=== PATIENT | male | born 1940 | race Asian ===

== ENCOUNTER 2022-12-09 11:22 | Inpatient (IN) | payer OTHER ==
[2022-12-09] MEDS ORDERED: cefTRIAXone (ROCEPHIN) 1 GM VIAL ONE (11:42)
[2022-12-09] MEDS ORDERED: Azithromycin 500 MG VIAL ONE (11:42)
[2022-12-09 11:55] LABS: Bacteria/HPF None Seen HPF (None Seen); Bilirubin Negative (Negative); Blood, Urine Negative (Negative); CAUTI Indications for Culture Alt mental st,lethar; Clarity Clear (Clear); Glucose, Urine (Dipstick) Normal (Negative); Ketone, Urine Negative (Negative); Leukocyte Negative Leu/uL (Negative); Nitrite Negative (Negative); Protein, Urine (Dipstick) Negative (Neg-Trace); RBC/HPF None Seen HPF (0-3); Squamous Epithelial None Seen HPF (0-3); Urobilinogen Normal mg/dL (Less than 2); WBC/HPF 0-3 HPF (0-3)
[2022-12-09 11:57] LABS: Urine Culture Reflex No No
[2022-12-09 12:01] LABS: #Monocytes 0.9 thou/uL (0.11-0.59); #Neutrophils 6.9 thou/uL (1.40-6.50); %Basophils 0.1 % (0.0-1.0); %Eosinophils 0.1 % (0.0-10.0); %Lymphocytes 15.7 % (21.0-51.0); %Monocytes 9.8 % (0.0-10.0); %Neutrophils 73.9 % (42.0-75.0); Hemoglobin 12.2 g/dL (14.0-18.0); Mean Corpuscular HGB CONC 33.9 g/dL (32.0-36.0); Mean Corpuscular Hemoglobin 29.6 pg (27.0-31.0); Mean Corpuscular Volume 87.4 fl (78.0-98.0); Mean Platelet Volume 9.8 fL (7.4-10.4); Platelet Count 214 10x3/uL (130-400); RBC Distribution Width 13.4 % (11.5-14.5); Red Blood Cell (RBC) Count 4.12 mill/uL (4.70-6.10); White Blood Cell (WBC) Count 9.3 10x3/uL (4.8-10.8)
[2022-12-09 12:22] LABS: ALT (SGPT) 12 U/L (8-55); AST (SGOT) 18 U/L (5-34); Albumin 3.6 g/dL (3.4-4.8); Alkaline Phosphatase 55 U/L (40-110); Anion Gap 17 mmol/L (10-20); BUN (Urea Nitrogen) 38 mg/dL (8.4-25.7); Bilirubin, Total 1.5 mg/dL (0.2-1.2); Calc. Creatinine Clearance 0 mL/min (70-130); Calcium 8.2 mg/dL (7.8-10.44); Carbon Dioxide 16 mmol/L (23-31); Chloride 105 mmol/L (98-107); Estimated GFR 21; Globulin 2.5 g/dL (2.4-3.5); Glucose 128 mg/dL (83-110); Lipase 41 U/L (8-78); Protein, Total 6.1 g/dL (5.8-8.1); Sodium 133 mmol/L (136-145)
[2022-12-09 12:50] LABS: CKMB 3.6 ng/mL (0-6.6)
[2022-12-09] MEDS ORDERED: Furosemide 40 MG/4 ML VIAL ONE (12:58)
[2022-12-09] MEDS ORDERED: Aspirin Chewable 81 MG TAB ONE (13:02)
[2022-12-09 13:57] LABS: Creatinine, Urine 106.74 mg/dL (63-166); Sodium, Urine Less than 20 mmol/L (Not Available)
[2022-12-09] MEDS ORDERED: Ondansetron ODT 4 MG TAB PO PRN (14:33)
[2022-12-09] MEDS ORDERED: Ondansetron PF 4 MG/2 ML Vial IVP PRN (14:33)
[2022-12-09] MEDS ORDERED: Lactated Ringer's 1,000 ML IV SCH ×2 (14:45→16:15)
[2022-12-09 14:57] LABS: Amphetamine Not Detected (NotDetected); Barbiturates Screen Not Detected (NotDetected); Benzodiazepine Screen Not Detected (NotDetected); Cocaine Metabolite Screen Not Detected (NotDetected); Methadone Not Detected (NotDetected); Methamphetamine Not Detected (NotDetected); Opiate Screen Not Detected (NotDetected); Oxycodone Screen Not Detected (NotDetected); Phencyclidine (PCP) Not Detected (NotDetected); THC/Cannabinoid Screen Not Detected (NotDetected); Tricyclic Screen Not Detected (NotDetected)
[2022-12-09 15:34] LABS: Troponin I 0.591 ng/mL (< 0.028)
[2022-12-09 15:41] LABS: Acetaminophen Less than 10 mcg/mL (10.0-30.0); Alcohol Less than 10.0 mg/dL (Less than 10); CK (CPK) 63 U/L (30-200); Salicylate Less than 8.0 mg/dL (15.0-30.0)
[2022-12-09 17:51] LABS: INR-International Normal Ratio 1.3; Prothrombin Time 16.2 sec (12.0-14.7)
[2022-12-09 17:52] LABS: PTT 49.4 sec (22.9-36.1)
[2022-12-09 18:00] LABS: ALT (SGPT) 13 U/L (8-55); AST (SGOT) 16 U/L (5-34); Albumin 3.6 g/dL (3.4-4.8); Alkaline Phosphatase 56 U/L (40-110); Anion Gap 16 mmol/L (10-20); BUN (Urea Nitrogen) 40 mg/dL (8.4-25.7); Bilirubin, Total 0.8 mg/dL (0.2-1.2); Calc. Creatinine Clearance 0 mL/min (70-130); Carbon Dioxide 18 mmol/L (23-31); Chloride 108 mmol/L (98-107); Estimated GFR 22; Globulin 2.4 g/dL (2.4-3.5); Glucose 120 mg/dL (83-110); Potassium 5.1 mmol/L (3.5-5.1); Sodium 137 mmol/L (136-145)
[2022-12-09 18:19] LABS: Hep C IgG Ab Non-Reactive S/CO (NonReactive); Hep C Index 0.06 S/CO (0-0.79)
[2022-12-09] MEDS ORDERED: Ipratropium/Albuterol 3 ML NEB NEB PRN (18:21)
[2022-12-09 18:40] VITALS: BMI 23.2
[2022-12-09 18:49] LABS: Troponin I 0.809 ng/mL (< 0.028)
[2022-12-09] MEDS: Ipratropium/Albuterol 3 ML NEB NEB SCH ×2 (19:06→22:33)
[2022-12-09 21:09] LABS: Troponin I 1.136 ng/mL (< 0.028)
[2022-12-10 00:33] LABS: Troponin I 1.362 ng/mL (< 0.028)
[2022-12-10] MEDS: Ipratropium/Albuterol 3 ML NEB NEB SCH ×2 (02:23→07:33)
[2022-12-10 04:23] LABS: #Monocytes 0.9 thou/uL (0.11-0.59); #Neutrophils 6.1 thou/uL (1.40-6.50); %Basophils 0.2 % (0.0-1.0); %Eosinophils 0.4 % (0.0-10.0); %Lymphocytes 23.5 % (21.0-51.0); %Monocytes 9.4 % (0.0-10.0); %Neutrophils 66.3 % (42.0-75.0); Hemoglobin 12.7 g/dL (14.0-18.0); Mean Corpuscular HGB CONC 33.2 g/dL (32.0-36.0); Mean Corpuscular Hemoglobin 29.8 pg (27.0-31.0); Mean Corpuscular Volume 89.9 fl (78.0-98.0); Mean Platelet Volume 9.6 fL (7.4-10.4); Platelet Count 225 10x3/uL (130-400); RBC Distribution Width 13.8 % (11.5-14.5); Red Blood Cell (RBC) Count 4.26 mill/uL (4.70-6.10); White Blood Cell (WBC) Count 9.2 10x3/uL (4.8-10.8)
[2022-12-10 04:47] LABS: ALT (SGPT) 14 U/L (8-55); AST (SGOT) 21 U/L (5-34); Albumin 3.7 g/dL (3.4-4.8); Alkaline Phosphatase 59 U/L (40-110); Anion Gap 17 mmol/L (10-20); BUN (Urea Nitrogen) 41 mg/dL (8.4-25.7); Bilirubin, Total 0.6 mg/dL (0.2-1.2); Calc. Creatinine Clearance 18 mL/min (70-130); Calcium 8.4 mg/dL (7.8-10.44); Carbon Dioxide 17 mmol/L (23-31); Chloride 109 mmol/L (98-107); Estimated GFR 25; Globulin 2.6 g/dL (2.4-3.5); Glucose 137 mg/dL (83-110); Potassium 4.7 mmol/L (3.5-5.1); Protein, Total 6.3 g/dL (5.8-8.1); Sodium 138 mmol/L (136-145)
[2022-12-10 05:02] LABS: Troponin I 1.494 ng/mL (< 0.028)
[2022-12-10] MEDS ORDERED: Ipratropium/Albuterol 3 ML NEB NEB PRN (07:34)
[2022-12-10 08:05] LABS: Actual Bicarbonate (HCO3a) 18.6 mEq/L (22-28); Base Excess (BEa) -4.8 mEq/L (-2.0 to +3.0); CO2 Tension 29.8 mmHg (35.0-45.0); Calcium, Ionized (arterial) 1.08 mmol/L (1.12-1.30); Carboxyhemoglobin (COHb) 0.7 gm% (0.0-3.0); Hematocrit-ABG 39 % (42.0-52.0); Hemoglobin (Hb) 13.1 g/dL (14.0-18.0); O2 Tension (PaO2), arterial 66.3 mmHg (> 60.0); Potassium - ABG Lab 4.41 mmol/L (3.70-5.30); pH, Arterial 7.412 (7.35-7.45)
[2022-12-10 08:10] LABS: Puncture Site LRA
[2022-12-10 08:57] LABS: Hemoglobin A1c 5.3 % (4.0-6.0)
[2022-12-10] MEDS: Lactated Ringer's 1,000 ML IV SCH ×2 (09:11→21:23)
[2022-12-10] MEDS ORDERED: Carvedilol 6.25 MG TAB PO SCH (12:15)
[2022-12-10 13:51] LABS: Cardiac Risk 4.3 (Less than 4.5); Cholesterol 119 mg/dl (< 200 Desired); HDL Cholesterol 28 mg/dL (>60 Neg Risk); LDL Cholesterol, Calculated 76 mg/dL; Magnesium 1.8 mg/dL (1.6-2.6); Triglycerides 74 mg/dL (Less than 150)
[2022-12-10] MEDS ORDERED: Regadenoson 0.4 MG/5 ML SYRINGE ONE (14:57)
[2022-12-10] MEDS: Carvedilol 6.25 MG TAB PO SCH (15:10)
[2022-12-11 04:29] LABS: #Monocytes 0.6 thou/uL (0.11-0.59); %Basophils 0.3 % (0.0-1.0); %Eosinophils 0.4 % (0.0-10.0); %Lymphocytes 22.5 % (21.0-51.0); %Monocytes 7.8 % (0.0-10.0); %Neutrophils 68.9 % (42.0-75.0); Hemoglobin 12.9 g/dL (14.0-18.0); Mean Corpuscular HGB CONC 33.8 g/dL (32.0-36.0); Mean Corpuscular Hemoglobin 30.4 pg (27.0-31.0); Mean Corpuscular Volume 90.1 fl (78.0-98.0); Mean Platelet Volume 9.3 fL (7.4-10.4); Platelet Count 209 10x3/uL (130-400); RBC Distribution Width 13.9 % (11.5-14.5); Red Blood Cell (RBC) Count 4.24 mill/uL (4.70-6.10); White Blood Cell (WBC) Count 7.2 10x3/uL (4.8-10.8)
[2022-12-11 05:02] LABS: ALT (SGPT) 13 U/L (8-55); AST (SGOT) 28 U/L (5-34); Albumin 3.4 g/dL (3.4-4.8); Alkaline Phosphatase 61 U/L (40-110); Anion Gap 13 mmol/L (10-20); BUN (Urea Nitrogen) 24 mg/dL (8.4-25.7); Bilirubin, Total 0.6 mg/dL (0.2-1.2); Calc. Creatinine Clearance 37 mL/min (70-130); Calcium 8.8 mg/dL (7.8-10.44); Carbon Dioxide 21 mmol/L (23-31); Chloride 113 mmol/L (98-107); Estimated GFR 58; Globulin 2.8 g/dL (2.4-3.5); Glucose 118 mg/dL (83-110); Potassium 4.2 mmol/L (3.5-5.1); Protein, Total 6.2 g/dL (5.8-8.1); Sodium 143 mmol/L (136-145)
[2022-12-11] MEDS: Lactated Ringer's 1,000 ML IV SCH (05:57)
[2022-12-11] MEDS ORDERED: Losartan 25 MG TAB PO SCH ×2 (10:15→14:45)
[2022-12-11] MEDS: Carvedilol 6.25 MG TAB PO SCH ×2 (10:19→16:24)
[2022-12-12 04:27] LABS: #Eosinphils 0.2 thou/uL (0.0-0.7); #Monocytes 0.6 thou/uL (0.11-0.59); #Neutrophils 4.1 thou/uL (1.40-6.50); %Basophils 0.2 % (0.0-1.0); %Eosinophils 2.7 % (0.0-10.0); %Lymphocytes 24.4 % (21.0-51.0); %Monocytes 9.2 % (0.0-10.0); %Neutrophils 63.2 % (42.0-75.0); Hemoglobin 14.1 g/dL (14.0-18.0); Mean Corpuscular HGB CONC 33.5 g/dL (32.0-36.0); Mean Corpuscular Hemoglobin 29.9 pg (27.0-31.0); Mean Corpuscular Volume 89.2 fl (78.0-98.0); Mean Platelet Volume 9.5 fL (7.4-10.4); Platelet Count 215 10x3/uL (130-400); RBC Distribution Width 13.2 % (11.5-14.5); Red Blood Cell (RBC) Count 4.72 mill/uL (4.70-6.10); White Blood Cell (WBC) Count 6.6 10x3/uL (4.8-10.8)
[2022-12-12 04:52] LABS: ALT (SGPT) 13 U/L (8-55); AST (SGOT) 27 U/L (5-34); Albumin 3.6 g/dL (3.4-4.8); Alkaline Phosphatase 69 U/L (40-110); Anion Gap 12 mmol/L (10-20); BUN (Urea Nitrogen) 18 mg/dL (8.4-25.7); Bilirubin, Total 0.8 mg/dL (0.2-1.2); Calc. Creatinine Clearance 45 mL/min (70-130); Calcium 8.9 mg/dL (7.8-10.44); Carbon Dioxide 21 mmol/L (23-31); Chloride 110 mmol/L (98-107); Estimated GFR 75; Globulin 2.9 g/dL (2.4-3.5); Glucose 100 mg/dL (83-110); Protein, Total 6.5 g/dL (5.8-8.1); Sodium 139 mmol/L (136-145)
[2022-12-12] MEDS: hydrALAZINE 20 MG/ML VIAL SLOW IVP PRN ×2 (07:06→16:42)
[2022-12-12] MEDS: Carvedilol 6.25 MG TAB PO SCH ×2 (08:57→17:24)
[2022-12-12] MEDS: Losartan 25 MG TAB PO SCH (08:57)
[2022-12-12] MEDS ORDERED: Losartan 25 MG TAB PO SCH ×2 (09:00)
[2022-12-12] MEDS ORDERED: NIFEdipine XL 30 MG TAB PO SCH ×2 (12:00→14:15)
[2022-12-13 05:09] LABS: #Eosinphils 0.3 thou/uL (0.0-0.7); #Monocytes 0.8 thou/uL (0.11-0.59); #Neutrophils 3.4 thou/uL (1.40-6.50); %Basophils 0.5 % (0.0-1.0); %Lymphocytes 29.5 % (21.0-51.0); %Monocytes 12.2 % (0.0-10.0); %Neutrophils 52.5 % (42.0-75.0); Hemoglobin 14.9 g/dL (14.0-18.0); Mean Corpuscular HGB CONC 33.6 g/dL (32.0-36.0); Mean Corpuscular Hemoglobin 29.3 pg (27.0-31.0); Mean Platelet Volume 9.2 fL (7.4-10.4); Platelet Count 204 10x3/uL (130-400); Red Blood Cell (RBC) Count 5.09 mill/uL (4.70-6.10); White Blood Cell (WBC) Count 6.4 10x3/uL (4.8-10.8)
[2022-12-13 05:35] LABS: ALT (SGPT) 13 U/L (8-55); AST (SGOT) 26 U/L (5-34); Albumin 3.6 g/dL (3.4-4.8); Alkaline Phosphatase 69 U/L (40-110); Anion Gap 15 mmol/L (10-20); BUN (Urea Nitrogen) 18 mg/dL (8.4-25.7); Bilirubin, Total 0.9 mg/dL (0.2-1.2); Calc. Creatinine Clearance 51 mL/min (70-130); Calcium 9.5 mg/dL (7.8-10.44); Carbon Dioxide 22 mmol/L (23-31); Chloride 109 mmol/L (98-107); Estimated GFR 85; Glucose 98 mg/dL (83-110); Potassium 3.8 mmol/L (3.5-5.1); Protein, Total 6.6 g/dL (5.8-8.1); Sodium 142 mmol/L (136-145)
[2022-12-13] MEDS: Carvedilol 6.25 MG TAB PO SCH (07:38)
[2022-12-13] MEDS: Losartan 25 MG TAB PO SCH (07:38)
[2022-12-13 07:59] VITALS: TEMP 98.1
[2022-12-13 08:47] VITALS: BP 144/68
[2022-12-13] MEDS ORDERED: NIFEdipine XL 60 MG TAB PO SCH (09:00)
[2022-12-13] MEDS ORDERED: NIFEdipine XL 30 MG TAB PO SCH (09:00)
== END 2022-12-13 11:20 | disposition home or self-care (01) | DRG 70 ==
LOC: ERS 11:22 → ERHOLD 13:19 → 2NO 18:14
PROVIDERS: ADMIT Student in an Organized Health Care Education/Training Program; ATTEND Student in an Organized Health Care Education/Training Program
DX: G93.41 Metabolic encephalopathy (principal); I21.A1 Myocardial infarction type 2; E87.1 Hypo-osmolality and hyponatremia; N17.9 Acute kidney failure, unspecified; I50.32 Chronic diastolic (congestive) heart failure; E86.0 Dehydration; F17.210 Nicotine dependence, cigarettes, uncomplicated; D64.9 Anemia, unspecified; E03.9 Hypothyroidism, unspecified; I11.0 Hypertensive heart disease with heart failure; E05.90 Thyrotoxicosis, unspecified without thyrotoxic crisis or storm; I08.1 Rheumatic disorders of both mitral and tricuspid valves; R73.9 Hyperglycemia, unspecified; E78.00 Pure hypercholesterolemia, unspecified; Z79.899 Other long term (current) drug therapy
CPT/HCPCS: 36415; 36600; 51701; 70450; 71045; 74230; 78452; 80053; 80061; 80306; 80307; 81001; 82140; 82550; 82553; 82570; 82805; 83036; 83605; 83690; 83735; 83880; 84100; 84300; 84436; 84439; 84443; 84481; 84484; 85025; 85610; 85730; 86803; 87040; 87086; 93005; 93010; 93017; 93306; 94640; 96361; 96365; 96372; A9500; J0360; J0456; J0696; J1650; J1940; J2785; J7120; J7620

== ENCOUNTER 2023-11-05 14:29 | Inpatient (IN) | payer MEDICAID, OTHER ==
[~2023-11-05 14:29] MED LIST: Iopamidol-370 76% 500 ML MDV (1 ML CHARGE) ONE
[2023-11-05] MEDS ORDERED: CALCIUM GLUC 1 GM (50 ML) BAG ONE (14:36)
[2023-11-05] MEDS ORDERED: Calcium Gluc 4.6 MEQ/10 ML (100 MG/ML) ONE ×2 (14:36→14:39)
[2023-11-05] MEDS ORDERED: Aspirin 300 MG Suppository ONE (14:40)
[2023-11-05] MEDS ORDERED: EPINEPHrine 1 MG/ML VIAL ONE ×4 (14:48→15:12)
[2023-11-05] MEDS ORDERED: Heparin 25,000 UNITS/D5W 500 ml bag ONE (14:50)
[2023-11-05] MEDS ORDERED: EPINEPHrine 1 MG/10 ML Abboject SYRINGE ONE (14:52)
[2023-11-05 15:03] LABS: #Basophils Less than 0.03 10x3/uL (0.0-0.2); %Basophils 0.2 % (0.0-1.0); %Eosinophils 6.9 % (0.0-10.0); %Monocytes 11.2 % (0.0-10.0); %Neutrophils 47.4 % (42.0-75.0); Hematocrit 32.8 % (42.0-52.0); Hemoglobin 11.4 g/dL (14.0-18.0); Mean Corpuscular HGB CONC 34.8 g/dL (32.0-36.0); Mean Corpuscular Hemoglobin 30.5 pg (27.0-31.0); Mean Corpuscular Volume 87.7 fL (78.0-98.0); Mean Platelet Volume 9.7 fL (7.4-10.4); Platelet Count 167 10x3/uL (130-400); RBC Distribution Width 12.5 % (11.5-14.5); Red Blood Cell (RBC) Count 3.74 mill/uL (4.70-6.10)
[2023-11-05] MEDS ORDERED: NOREPINEPHRINE 8 MG/250 ML-D5W 0 ML ONE (15:07)
[2023-11-05 15:15] LABS: INR-International Normal Ratio 1.1; Prothrombin Time 14.2 sec (12.0-14.7)
[2023-11-05 15:16] LABS: PTT 31.2 sec (22.9-36.1)
[2023-11-05 15:18] LABS: ALT (SGPT) 29 U/L (8-55); AST (SGOT) 22 U/L (5-34); Albumin 3.3 g/dL (3.4-4.8); Alkaline Phosphatase 39 U/L (40-110); Anion Gap 15 mmol/L (10-20); BUN (Urea Nitrogen) 13 mg/dL (8.4-25.7); Bilirubin, Total 1.5 mg/dL (0.2-1.2); Calc. Creatinine Clearance 0 mL/min (70-130); Calcium 7.9 mg/dL (7.8-10.44); Carbon Dioxide 20 mmol/L (23-31); Chloride 112 mmol/L (98-107); Estimated GFR 55; Globulin 2.4 g/dL (2.4-3.5); Glucose 156 mg/dL (83-110); Potassium 4.1 mmol/L (3.5-5.1); Protein, Total 5.7 g/dL (5.8-8.1); Sodium 143 mmol/L (136-145)
[2023-11-05 15:22] LABS: Troponin I Less than 0.010 ng/mL (< 0.028)
[2023-11-05] MEDS ORDERED: Sodium Chloride 0.9% 100 ML ONE (15:29)
[2023-11-05] MEDS ORDERED: Cefepime 2 GM VIAL ONE (15:29)
[2023-11-05] MEDS ORDERED: Vancomycin (BATCH) 2 GM/500 ML BAG ONE (15:49)
[2023-11-05 16:31] LABS: Lipase 22 U/L (8-78)
[2023-11-05 16:33] LABS: Acetaminophen Less than 10 mcg/mL (10.0-30.0); Alcohol Less than 10.0 mg/dL (Less than 10); Salicylate Less than 8.0 mg/dL (15.0-30.0)
[2023-11-05 17:11] LABS: Bacteria/HPF None Seen HPF (None Seen); Bilirubin Negative (Negative); Blood, Urine Negative (Negative); CAUTI Indications for Culture Alt mental st,lethar; Clarity Clear (Clear); Glucose, Urine (Dipstick) Normal (Negative); Ketone, Urine Negative (Negative); Leukocyte Negative Leu/uL (Negative); Nitrite Negative (Negative); Protein, Urine (Dipstick) 10 mg/dL (Neg-Trace); RBC/HPF 0-3 HPF (0-3); Squamous Epithelial None Seen HPF (0-3); Urobilinogen Normal mg/dL (Less than 2); WBC/HPF 0-3 HPF (0-3)
[2023-11-05 17:17] LABS: Amphetamine Not Detected (NotDetected); Barbiturates Screen Not Detected (NotDetected); Benzodiazepine Screen Not Detected (NotDetected); Cocaine Metabolite Screen Not Detected (NotDetected); Methadone Not Detected (NotDetected); Methamphetamine Not Detected (NotDetected); Opiate Screen Not Detected (NotDetected); Oxycodone Screen Not Detected (NotDetected); Phencyclidine (PCP) Not Detected (NotDetected); THC/Cannabinoid Screen Not Detected (NotDetected); Tricyclic Screen Not Detected (NotDetected)
[2023-11-05 17:47] LABS: Urine Culture Reflex No No
[2023-11-05 17:52] LABS: Troponin I Less than 0.010 ng/mL (< 0.028)
[2023-11-05 17:53] LABS: Magnesium 1.9 mg/dL (1.6-2.6)
[2023-11-05] MEDS ORDERED: Senokot S 8.6-50 MG TAB PO PRN (18:56)
[2023-11-05] MEDS ORDERED: Ondansetron ODT 4 MG TAB PO PRN (18:56)
[2023-11-05] MEDS ORDERED: Calcium Carbonate 500 MG ChewTAB PO PRN (18:56)
[2023-11-05] MEDS ORDERED: Ondansetron PF 4 MG/2 ML Vial IVP PRN (18:56)
[2023-11-05] MEDS ORDERED: Ipratropium/Albuterol 3 ML NEB NEB PRN (18:58)
[2023-11-05] MEDS ORDERED: Heparin 10,000 UNITS/ 10 ML VIAL SLOW IVP SCH (19:00)
[2023-11-05] MEDS ORDERED: Heparin 25,000 units/D5W 500 ML IVPB SCH (19:00)
[2023-11-05] MEDS ORDERED: EPINEPHrine 4 MG in Dextrose 5% in Water 250 ML IV SCH (19:15)
[2023-11-05 19:43] LABS: Troponin I Less than 0.010 ng/mL (< 0.028)
[2023-11-05 20:34] LABS: Hematocrit 32.9 % (42.0-52.0); Hemoglobin 11.4 g/dL (14.0-18.0); Platelet Count 188 10x3/uL (130-400)
[2023-11-05 20:40] VITALS: BMI 25.8
[2023-11-05] MEDS ORDERED: Vancomycin 1.5 GM in Sodium Chloride 0.9% 250 ML 300 ML IVPB SCH (21:00)
[2023-11-05] MEDS: methylPREDNISolone Sod Succ 40 MG VIAL IVP SCH (21:02)
[2023-11-05] MEDS: Famotidine 20 MG TAB PO SCH (21:02)
[2023-11-05] MEDS: Albumin 25% 25 GM (100 mL) BOT IVPB SCH (21:02)
[2023-11-05] MEDS: Sodium Chloride 0.9% 1,000 ML IV SCH (21:02)
[2023-11-05 21:03] LABS: PTT 159.3 sec (22.9-36.1)
[2023-11-05] MEDS: Magnesium 2 GM/50 ML(in water) 2 GM in Premix 1 BAG IVPB SCH (21:20)
[2023-11-06] MEDS: Cefepime 1 GM in Sodium Chloride 0.9% 100 ML IVPB SCH (02:47)
[2023-11-06 04:59] LABS: Lactic Acid 1.1 mmol/L (0.5-2.2)
[2023-11-06 05:02] LABS: Albumin 4.8 g/dL (3.4-4.8); Chloride 113 mmol/L (98-107); Potassium 3.7 mmol/L (3.5-5.1); Sodium 142 mmol/L (136-145)
[2023-11-06 05:03] LABS: ALT (SGPT) 27 U/L (8-55); AST (SGOT) 19 U/L (5-34); Alkaline Phosphatase 43 U/L (40-110); Anion Gap 14 mmol/L (10-20); BUN (Urea Nitrogen) 14 mg/dL (8.4-25.7); Bilirubin, Total 1.7 mg/dL (0.2-1.2); Calc. Creatinine Clearance 44 mL/min (70-130); Carbon Dioxide 19 mmol/L (23-31); Estimated GFR 71; Globulin 2.5 g/dL (2.4-3.5); Glucose 156 mg/dL (83-110); Magnesium 1.8 mg/dL (1.6-2.6); Vancomycin, Random 21.3 ug/mL (See Comment)
[2023-11-06 05:28] LABS: Hematocrit 32.7 % (42.0-52.0); Hemoglobin 11.5 g/dL (14.0-18.0); Red Blood Cell (RBC) Count 3.85 mill/uL (4.70-6.10)
[2023-11-06 05:29] LABS: %Basophils 0.1 % (0.0-1.0); %Eosinophils 0.1 % (0.0-10.0); %Lymphocytes 11.8 % (21.0-51.0); %Neutrophils 86.7 % (42.0-75.0); Mean Corpuscular HGB CONC 35.2 g/dL (32.0-36.0); Mean Corpuscular Hemoglobin 29.9 pg (27.0-31.0); Mean Corpuscular Volume 84.9 fL (78.0-98.0); Mean Platelet Volume 9.4 fL (7.4-10.4); Platelet Count 159 10x3/uL (130-400); RBC Distribution Width 12.6 % (11.5-14.5)
[2023-11-06 05:30] LABS: #Basophils Less than 0.03 10x3/uL (0.0-0.2); #Eosinphils Less than 0.03 10x3/uL (0.0-0.7)
[2023-11-06 05:41] LABS: Calcium 9.7 mg/dL (7.8-10.44); Phosphorus 1.5 mg/dL (2.3-4.7); Protein, Total 7.3 g/dL (5.8-8.1)
[2023-11-06] MEDS ORDERED: Electrolyte Replacement Protocol 1 EACH FS SCH (08:57)
[2023-11-06] MEDS: Magnesium 2 GM/50 ML(in water) 2 GM in Premix 1 BAG IVPB SCH (10:14)
[2023-11-06] MEDS: Clopidogrel Bisulfate 75 MG TAB PO SCH (10:14)
[2023-11-06] MEDS: PHOS-NAK 1 PKT PACK PO SCH (10:16)
[2023-11-06] MEDS ORDERED: Vancomycin HCl 750 MG in Sodium Chloride 0.9% 250 ML 250 ML IVPB SCH (15:00)
[2023-11-06] MEDS ORDERED: Vancomycin 1 GM in Premix 1 BAG IVPB SCH (15:00)
[2023-11-06] MEDS: Rosuvastatin 10 MG TAB PO SCH (21:39)
[2023-11-07 06:09] LABS: #Basophils Less than 0.03 10x3/uL (0.0-0.2); #Eosinphils Less than 0.03 10x3/uL (0.0-0.7); %Basophils 0.2 % (0.0-1.0); %Eosinophils 0.1 % (0.0-10.0); %Lymphocytes 17.2 % (21.0-51.0); %Monocytes 9.5 % (0.0-10.0); %Neutrophils 72.6 % (42.0-75.0); Hematocrit 33.1 % (42.0-52.0); Hemoglobin 11.5 g/dL (14.0-18.0); Mean Corpuscular HGB CONC 34.7 g/dL (32.0-36.0); Mean Corpuscular Hemoglobin 30.4 pg (27.0-31.0); Mean Corpuscular Volume 87.6 fL (78.0-98.0); Mean Platelet Volume 9.9 fL (7.4-10.4); Platelet Count 195 10x3/uL (130-400); RBC Distribution Width 13.1 % (11.5-14.5); Red Blood Cell (RBC) Count 3.78 mill/uL (4.70-6.10)
[2023-11-07 08:01] LABS: Anion Gap 15 mmol/L (10-20); BUN (Urea Nitrogen) 17 mg/dL (8.4-25.7); Calc. Creatinine Clearance 43 mL/min (70-130); Calcium 9.1 mg/dL (7.8-10.44); Carbon Dioxide 21 mmol/L (23-31); Chloride 111 mmol/L (98-107); Estimated GFR 80; Glucose 107 mg/dL (83-110); Magnesium 2.1 mg/dL (1.6-2.6); Phosphorus 3.7 mg/dL (2.3-4.7); Potassium 3.8 mmol/L (3.5-5.1); Sodium 143 mmol/L (136-145)
[2023-11-07] MEDS: Losartan 25 MG TAB PO SCH ×2 (10:32→13:56)
[2023-11-07 17:49] LABS: Hematocrit 34.3 % (42.0-52.0); Hemoglobin 11.8 g/dL (14.0-18.0); Platelet Count 188 10x3/uL (130-400)
[2023-11-07] MEDS: NIFEdipine XL 30 MG ER.TAB PO SCH (18:41)
[2023-11-07] MEDS: Acetaminophen 325 MG TAB PO PRN (20:44)
[2023-11-08 08:08] LABS: #Basophils 0.03 10x3/uL (0.0-0.2); %Basophils 0.3 % (0.0-1.0); %Eosinophils 3.3 % (0.0-10.0); %Lymphocytes 25.9 % (21.0-51.0); %Monocytes 8.2 % (0.0-10.0); Anion Gap 15 mmol/L (10-20); BUN (Urea Nitrogen) 22 mg/dL (8.4-25.7); Calc. Creatinine Clearance 45 mL/min (70-130); Calcium 9.2 mg/dL (7.8-10.44); Carbon Dioxide 19 mmol/L (23-31); Chloride 111 mmol/L (98-107); Estimated GFR 84; Glucose 92 mg/dL (83-110); Hematocrit 37.3 % (42.0-52.0); Hemoglobin 13.1 g/dL (14.0-18.0); Mean Corpuscular HGB CONC 35.1 g/dL (32.0-36.0); Mean Corpuscular Hemoglobin 30.8 pg (27.0-31.0); Mean Corpuscular Volume 87.6 fL (78.0-98.0); Mean Platelet Volume 9.6 fL (7.4-10.4); Platelet Count 181 10x3/uL (130-400); Potassium 3.8 mmol/L (3.5-5.1); RBC Distribution Width 13.1 % (11.5-14.5); Red Blood Cell (RBC) Count 4.26 mill/uL (4.70-6.10); Sodium 141 mmol/L (136-145)
[2023-11-08] MEDS ORDERED: Losartan 25 MG TAB PO SCH (09:00)
[2023-11-08] MEDS: Losartan 25 MG TAB PO SCH (09:55)
[2023-11-08] MEDS: Magnesium 2 GM/50 ML(in water) 2 GM in Premix 1 BAG IVPB SCH (09:55)
[2023-11-08] MEDS: NIFEdipine XL 30 MG ER.TAB PO SCH (09:56)
[2023-11-08 12:08] VITALS: BP 162/81; TEMP 98.3
[2023-11-09] MEDS ORDERED: Famotidine 20 MG TAB PO SCH (09:00)
== END 2023-11-08 15:15 | disposition home or self-care (01) | DRG 314 ==
LOC: ERS 14:29 → CCU 18:16 → 2NO 11-06 17:53
PROVIDERS: ADMIT Internal Medicine; ATTEND Internal Medicine
DX: I95.9 Hypotension, unspecified (principal); G93.41 Metabolic encephalopathy; R57.0 Cardiogenic shock; I50.32 Chronic diastolic (congestive) heart failure; I13.0 Hypertensive heart and chronic kidney disease with heart failure and stage 1 through stage 4 chronic kidney disease, or unspecified chronic kidney disease; R00.1 Bradycardia, unspecified; I25.10 Atherosclerotic heart disease of native coronary artery without angina pectoris; E78.5 Hyperlipidemia, unspecified; E83.42 Hypomagnesemia; N18.9 Chronic kidney disease, unspecified; M81.0 Age-related osteoporosis without current pathological fracture; Z95.9 Presence of cardiac and vascular implant and graft, unspecified; F17.200 Nicotine dependence, unspecified, uncomplicated
CPT/HCPCS: 36415; 36416; 36556; 51702; 71045; 71275; 74174; 80048; 80053; 80202; 80306; 80307; 81001; 82533; 83605; 83690; 83735; 84100; 84443; 84484; 85014; 85018; 85025; 85049; 85610; 85730; 86850; 86900; 86901; 87040; 87086; 93005; 93306; 94760; 96365; 96366; 96367; J0171; J0612; J0613; J0692; J1644; J2920; J3370; J3475; J3490; J7050; P9047; Q9967